=== PATIENT | male | born 1955 | race African-American/Black ===

== ENCOUNTER 2017-09-25 09:45 | Emergency (ER) | payer MEDICAID ==
[~2017-09-25] VITALS: Ht 188 cm; Wt 100.0 kg
[2017-09-25 09:47] VITALS: BP 144/78
[2017-09-25] MEDS ORDERED: insulin (09:51)
== END 2017-09-25 13:02 | disposition home or self-care (01) ==
LOC: ER 09:45
DX: S82.001A Unspecified fracture of right patella, initial encounter for closed fracture (principal); E11.9 Type 2 diabetes mellitus without complications; F17.200 Nicotine dependence, unspecified, uncomplicated; Z79.4 Long term (current) use of insulin; W19.XXXA Unspecified fall, initial encounter; Y93.89 Activity, other specified; Y92.89 Other specified places as the place of occurrence of the external cause; Y99.8 Other external cause status
CPT/HCPCS: 73562; 99284; L1830; Z7610

== ENCOUNTER 2017-11-05 12:49 | Emergency (ER) | payer MEDICAID ==
[~2017-11-05] VITALS: Ht 185.4 cm; Wt 107.0 kg
[~2017-11-05 12:49] MED LIST: insulin
[2017-11-05] MEDS ORDERED: ACETAMINOPHEN 325MG TABLET PO ONE (19:00)
[2017-11-05] MEDS ORDERED: IBUPROFEN 800MG TABLET PO ONE (20:15)
[2017-11-05 20:21] VITALS: BP 120/77
== END 2017-11-05 20:25 | disposition home or self-care (01) ==
LOC: ER 13:55
DX: S82.091A Other fracture of right patella, initial encounter for closed fracture (principal); E11.9 Type 2 diabetes mellitus without complications; Z79.4 Long term (current) use of insulin; W01.0XXA Fall on same level from slipping, tripping and stumbling without subsequent striking against object, initial encounter; Y93.89 Activity, other specified; Y92.480 Sidewalk as the place of occurrence of the external cause
CPT/HCPCS: 99283; L1830; Z7610